=== PATIENT | female | born 1960 | race Caucasian/White ===

== ENCOUNTER 2020-03-25 21:42 | Emergency (ER) | payer MEDICAID ==
[~2020-03-25] VITALS: Ht 175.3 cm; Wt 59.0 kg
[~2020-03-25 21:42] MED LIST: BENZ2AMP4 PO; PALI9TAB PO; SERT50TA PO
--- NOTE | 2020-03-25 21:58 | NUR ---
INDUSTRIAL X RAY OPERATOR: EKG DONE IN TRIAGE
--- NOTE | 2020-03-25 22:31 | NUR ---
MANAGER SHIFT COVID SWAB COLLECTED AND WALKED TO LAB.
[2020-03-25 22:50] LABS: BASOPHILS % (AUTO) 1 % (0-1); EOSINOPHILS % (AUTO) 2 % (1-7); LYMPHOCYTES % (AUTO) 35 % (22-44); MEAN CORPUSCULAR HEMOGLOBIN 32.8 pg (27.0-34.8); MEAN CORPUSCULAR HGB CONC 33.5 g/dL (32.4-35.8); MONOCYTES % (AUTO) 16 % (2-9); NEUTROPHILS % (AUTO) 47 % (42-75); PLATELET COUNT 119 x10^3/uL (130-400); RED BLOOD COUNT 3.72 x10^6/uL (3.82-5.3); RED CELL DISTRIBUTION WIDTH 15.4 % (9.6-15.2)
[2020-03-25 22:52] LABS: MD NO
[2020-03-25 23:17] LABS: ANION GAP 10 mmol/L (5-15); CHLORIDE 108 mmol/L (98-107)
[2020-03-25 23:18] LABS: CREATININE 0.57 mg/dL (0.55-1.02)
[2020-03-25 23:22] LABS: ALANINE AMINOTRANSFERASE 36 U/L (12-78); ALKALINE PHOSPHATASE 96 U/L (45-117)
[2020-03-25 23:23] LABS: ALBUMIN 3.8 g/dL (3.4-5.0)
[2020-03-25 23:38] LABS: C-REACTIVE PROTEIN, QUANT 0.11 mg/dL (0.02-0.49)
[2020-03-26 00:10] VITALS: BP 114/71
--- NOTE | 2020-03-26 00:42 | NUR ---
DISCHARGE PAPERWORK REVIEWED. NO QUESTIONS. VERBALIZES UNDERSTANDING. AMBULATORY AT DISCHARGE.
== END 2020-03-26 00:43 | disposition home or self-care (01) ==
LOC: ED 22:33
DX: B34.9 Viral infection, unspecified (principal); Z20.828 Contact with and (suspected) exposure to other viral communicable diseases; R00.0 Tachycardia, unspecified; R06.02 Shortness of breath
CPT/HCPCS: 71045; 80053; 82728; 83615; 84145; 85025; 86140; 87635; 93005; 99285

== ENCOUNTER 2020-05-03 03:00 | Inpatient (IN) | payer MEDICAID ==
[~2020-05-03] VITALS: Ht 175.3 cm; Wt 59.9 kg
[2020-05-03] MEDS ORDERED: PROMETHAZINE 25 MG/ML, 1ML IM ONE (03:30)
[2020-05-03] MEDS ORDERED: LORazepam 2 MG/ML, 1ML IVPush ONE (03:30)
[2020-05-03] MEDS ORDERED: SODIUM CHLORIDE 0.9% 1,000ML IVBOLUS ONE ×2 (03:30→07:00)
[2020-05-03] MEDS ORDERED: MAGNESIUM SULFATE 1 GM, THIAMINE 100 MG, FOLIC ACID 1 MG, MVI ADULT 10 ML in SODIUM CHL... IV ONE (03:30)
[2020-05-03] MEDS ORDERED: SODIUM CHLORIDE FLUSH 10ML SYR IVF ONE (03:30)
[2020-05-03] MEDS ORDERED: LORazepam 2 MG/ML, 1ML ONE ×2 (03:46→05:48)
[2020-05-03] MEDS ORDERED: PROMETHAZINE 25 MG/ML, 1ML ONE (03:46)
--- NOTE | 2020-05-03 03:51 | NUR ---
PT HAS VERY DIFFICULT VASCULATURE. IV ATTEMPTS x3 UNSUCCESSFUL. ULTRASOUND IV LINE REQUESTED. PT TOLERATED WELL. MEDICATED WITH IM ANTIEMETIC. PT RESTING, DENIES ANY FURTHER NEEDS OR CONCERNS AT THIS TIME. CALL LIGHT IN REACH.
--- NOTE | 2020-05-03 04:36 | NUR ---
ULTRASOUND LINE STARTED PER KAMERON URIARTE. PT TOLERATED WELL. FLUIDS INFUSING AT THIS TIME. PT DENIES ANY CURRENT NEEDS OR CONCERNS. CALL LIGHT IN REACH.
--- NOTE | 2020-05-03 04:58 | NUR ---
IV FLUIDS CONTINUE INFUSING, PT RESTING WITH EYES CLOSED, RESPIRATIONS EVEN AND UNLABORED. IV SITE NOTED TO BE SWOLLEN, TIGHT, THOUGH FLUIDS CONTINUE INFUSING ON GRAVITY. IV PAUSED, IV SITE DISCONTINUED DUE TO INFILTRATE. SECOND ULTRASOUND LINE REQUESTED.
--- NOTE | 2020-05-03 05:43 | NUR ---
SECOND RN STARTED MULTIPLE LINES, ALL CHARTED AT THIS TIME. FLUIDS ATTACHED TO EJ AND CONTINUED AT THIS TIME. PT DENIES ANY FURTHER NEEDS OR CONCERNS AT THIS TIME, CALL LIGHT IN REACH.
[2020-05-03 05:53] LABS: BASOPHILS % (AUTO) 1 % (0-1); EOSINOPHILS % (AUTO) 0 % (1-7); LYMPHOCYTES % (AUTO) 11 % (22-44); MEAN CORPUSCULAR HEMOGLOBIN 33.5 pg (27.0-34.8); MEAN CORPUSCULAR HGB CONC 33.8 g/dL (32.4-35.8); MEAN PLATELET VOLUME 7.3 fL (7.4-10.4); MONOCYTES % (AUTO) 13 % (2-9); NEUTROPHILS % (AUTO) 76 % (42-75); PLATELET COUNT 111 x10^3/uL (130-400); RED BLOOD COUNT 3.62 x10^6/uL (3.82-5.3); RED CELL DISTRIBUTION WIDTH 14.2 % (9.6-15.2)
[2020-05-03 05:59] LABS: ALANINE AMINOTRANSFERASE 26 U/L (12-78); ALBUMIN 3.7 g/dL (3.4-5.0); ANION GAP 15 mmol/L (5-15); CHLORIDE 92 mmol/L (98-107); CREATININE 1.22 mg/dL (0.55-1.02)
[2020-05-03 06:00] LABS: INTERNATIONAL NORMALIZED RATIO 1.03 (0.93-1.1); PROTHROMBIN TIME 10.9 Seconds (9.6-11.5)
[2020-05-03] MEDS: LORazepam 2 MG/ML, 1ML IVPush PRN ×2 (06:02→06:25)
[2020-05-03 06:03] LABS: ALKALINE PHOSPHATASE 73 U/L (45-117); BILIRUBIN,TOTAL 2.2 mg/dL (0.2-1.0); TOTAL PROTEIN 7.7 g/dL (6.4-8.2); TROPONIN I < 0.015 ng/mL (0.000-0.045)
[2020-05-03 06:27] LABS: MD SCAN
--- NOTE | 2020-05-03 06:43 | NUR ---
PT IN BED, ALERT, RESPONSIVE TO STAFF. REQUESTS BATHROOM, ASSISTED ONTO BEDPAN. PT UNABLE TO URINATE. DENIES ANY FURTHER NEED AT THIS TIME. CALL LIGHT IN REACH.
[2020-05-03] MEDS ORDERED: ONDANSETRON 2MG/ML, 2ML IVPush PRN ×2 (07:00→08:30)
[2020-05-03] MEDS ORDERED: SODIUM CHLORIDE 0.9% 1,000 ML IV ONE (07:00)
--- NOTE | 2020-05-03 07:04 | NUR ---
Report received and care assumed. Repositioned pt in bed and covered her with blankets. IVF and banana bag running as stated in report. Pt is shaky all over, especially when holding out her hand, mumbling incomprehensible words, following commands, but oriented only to self. KARENA, denies needing to urinate and no incontinence present at this time. Room straightened and call light in reach.
--- NOTE | 2020-05-03 07:20 | NUR ---
Pt with urinary incontinence noted. Pt cleaned with warm washcloths, new gown applied and pt placed on dry sheets with blankets over her. Call light in reach, pt repositioned to top of bed and side rails up.
--- NOTE | 2020-05-03 08:10 | NUR ---
Pt restless in bed and found with urinary incontinence again. Pt cleaned with warm washcloth and placed on dry sheets with clean gown and chucks pad. Call light in reach and blankets placed over pt. She continues to mumble incoherently with moderate shakiness present.
--- NOTE | 2020-05-03 08:22 | NUR ---
Pt placed on bedpan for second time now with good results after first placement 10 minutes ago. IV site saline locked and flushes well. Both fluids completed.
[2020-05-03] MEDS ORDERED: CYCLOBENZAPRINE 10 MG TABLET PO PRN (08:30)
[2020-05-03] MEDS ORDERED: LORazepam 1MG TABLET PO PRN ×4 (08:30)
[2020-05-03] MEDS: ENOXAPARIN 40 MG/0.4 ML SQ SCH (08:30)
[2020-05-03] MEDS ORDERED: LORazepam 0.5MG TABLET PO PRN (08:30)
[2020-05-03] MEDS ORDERED: LABETALOL 5MG/ML, 20ML IVPush PRN (08:30)
[2020-05-03] MEDS ORDERED: FOLIC ACID 5 MG/ML IM ONE (08:30)
[2020-05-03] MEDS ORDERED: THIAMINE 200 MG in DEXTROSE 5% 50 ML IVPB ONE (08:30)
[2020-05-03] MEDS: THIAMINE 200 MG, MVI ADULT 10 ML, FOLIC ACID 1 MG in D5%-0.9% NACL 1,000 ML IV SCH (08:30)
[2020-05-03] MEDS ORDERED: ONDANSETRON ODT 4 MG PO PRN (08:30)
[2020-05-03] MEDS ORDERED: ACETAMINOPHEN 325 MG TABLET PO PRN (08:30)
[2020-05-03] MEDS ORDERED: LORazepam 2 MG/ML, 1ML IV PRN ×4 (08:30)
[2020-05-03] MEDS: CHLORDIAZEPOXIDE 25 MG CAPSULE PO SCH ×7 (08:30→20:30)
--- NOTE | 2020-05-03 08:30 | NUR ---
Erick trarebeca ordered and NICOLE reviewed for any AM meds while awaiting room assignment.
[2020-05-03] MEDS ORDERED: ENOXAPARIN 40 MG/0.4 ML ONE (08:55)
[2020-05-03] MEDS ORDERED: CHLORDIAZEPOXIDE 25 MG CAPSULE ONE ×2 (08:56→13:44)
[2020-05-03] MEDS ORDERED: THIAMINE 100 MG/ML, 2ML ONE (08:56)
[2020-05-03] MEDS ORDERED: PANTOPRAZOLE 40MG TABLET ONE (08:56)
[2020-05-03] MEDS: PANTOPRAZOLE 40MG TABLET PO SCH (09:29)
--- NOTE | 2020-05-03 09:50 | NUR ---
Pt ate approximately 5% of her breakfast, took AM meds that were available in [facility], and maintenance IVF started via pump at 125mL/hr as ordered with Thiamine running IVPB via pump at 250mL/hr after mixed in 250mL NS bag. Awaiting all other AM meds to be delivered from pharmacy at this time. Pt repositioned in bed and lights dimmed.
[2020-05-03] MEDS ORDERED: FOLIC ACID 1 MG TABLET PO ONE (10:00)
--- NOTE | 2020-05-03 10:09 | NUR ---
Pt found trying to scoot off end of bed. Repositioned in bed and noted that pt was hallucinating a person in the corner. Remains with moderate shakes, mumbling incoherently most times but able to be redirected and answers questions clearly with continued request for focus. Based on CIWA scale, pt will be provided Ativan if needed.
--- NOTE | 2020-05-03 10:36 | NUR ---
Pt assisted onto and off of bedpan again with good uop noted. Skin care completed and dry chucks pad applied.
[2020-05-03] MEDS: MULTIVITAMINS/MINERALS TABLET PO SCH (11:28)
--- NOTE | 2020-05-03 12:04 | NUR ---
Pt assisted onto bedpan with good uop present. Skin care completed and pt repositioned in bed. Pt mumbles incoherently unless focussed questions asked and then she answers correctly but with slurred speech noted. Pt remains moderately shaky and having visual hallucinations. Friend is visiting and sitting at bedside at this time.
--- NOTE | 2020-05-03 13:36 | NUR ---
Pt assisted on and off bedpan with moderate uop present. Pt repositioned in bed and call light in reach.
--- NOTE | 2020-05-03 13:55 | NUR ---
Pt assisted on and off bedpan with good uop noted. Pt placed on new chucks pad as well and repositioned in bed.
[2020-05-03 14:40] LABS: ANION GAP 11 mmol/L (5-15); CALCIUM 8.8 mg/dL (8.5-10.1); CHLORIDE 106 mmol/L (98-107); CREATININE 0.79 mg/dL (0.55-1.02)
--- NOTE | 2020-05-03 15:11 | NUR ---
Pt resting after [facility] admin at 1430 with VSS and NAD noted at this time.
[2020-05-03] MEDS ORDERED: ACETAMINOPHEN 325 MG TABLET ONE (15:16)
--- NOTE | 2020-05-03 15:24 | NUR ---
Pt assisted on and off bedpan and repositioned in bed after APAP given PO for c/o moderate ARREDONDO.
--- NOTE | 2020-05-03 16:58 | NUR ---
Pt resting on left side, snoring respirations present and no acute distress noted. Friend sitting quietly at bedside with pt at this time.
--- NOTE | 2020-05-03 17:54 | NUR ---
CALL TO DR. ABURTO TO CONFIRM COVID MONITORED INPATIENT ADMIT, PER DR. ABURTO OKAY TO CHANGE TO COVID MONITORED.
--- NOTE | 2020-05-03 18:35 | NUR ---
Report called to KAMERON Bullard and pt readied for transfer.
--- NOTE | 2020-05-03 18:58 | NUR ---
Pt found incontinent of urine. Skin care completed, new gown and new linens applied and pt set up for dinner while awaiting transport to floor. Brief overview provided to FABIANO RN for continuity of care while between shifts and between being transferred to floor.
[2020-05-03 20:07] VITALS: BP 112/73
[2020-05-04] VITALS (11 sets, daily range): BP systolic 101–130; BP diastolic 59–86
[2020-05-04] MEDS: LORazepam 2 MG/ML, 1ML IV PRN ×3 (00:51→05:48)
[2020-05-04] MEDS: CHLORDIAZEPOXIDE 25 MG CAPSULE PO SCH ×5 (02:13→20:31)
[2020-05-04] MEDS: THIAMINE 200 MG, MVI ADULT 10 ML, FOLIC ACID 1 MG in D5%-0.9% NACL 1,000 ML IV SCH (08:49)
[2020-05-04] MEDS: MULTIVITAMINS/MINERALS TABLET PO SCH (08:49)
[2020-05-04] MEDS: PANTOPRAZOLE 40MG TABLET PO SCH (08:50)
[2020-05-04] MEDS: ENOXAPARIN 40 MG/0.4 ML SQ SCH (08:51)
[2020-05-04 12:33] LABS: BASOPHILS % (AUTO) 1 % (0-1); EOSINOPHILS % (AUTO) 2 % (1-7); LYMPHOCYTES % (AUTO) 17 % (22-44); MEAN CORPUSCULAR HEMOGLOBIN 33.3 pg (27.0-34.8); MEAN CORPUSCULAR HGB CONC 33.4 g/dL (32.4-35.8); MEAN PLATELET VOLUME 7.7 fL (7.4-10.4); MONOCYTES % (AUTO) 12 % (2-9); NEUTROPHILS % (AUTO) 69 % (42-75); PLATELET COUNT 65 x10^3/uL (130-400); RED CELL DISTRIBUTION WIDTH 14.6 % (9.6-15.2)
[2020-05-04 12:37] LABS: MD NO
[2020-05-04 12:40] LABS: CHLORIDE 108 mmol/L (98-107)
[2020-05-04 12:49] LABS: ALANINE AMINOTRANSFERASE 22 U/L (12-78); ALKALINE PHOSPHATASE 65 U/L (45-117); ANION GAP 9 mmol/L (5-15); BILIRUBIN,TOTAL 1.8 mg/dL (0.2-1.0); CALCIUM 8.9 mg/dL (8.5-10.1); CREATININE 0.64 mg/dL (0.55-1.02); TOTAL PROTEIN 6.7 g/dL (6.4-8.2)
[2020-05-04] MEDS ORDERED: THIAMINE 200 MG, MVI ADULT 10 ML, FOLIC ACID 1 MG in D5%-0.9% NACL 1,000 ML IV SCH (16:30)
[2020-05-05 02:05] VITALS: BP 114/74
[2020-05-05] MEDS: CHLORDIAZEPOXIDE 25 MG CAPSULE PO SCH (02:26)
[2020-05-05 06:52] VITALS: BP 118/75
[2020-05-05] MEDS: PANTOPRAZOLE 40MG TABLET PO SCH (07:51)
[2020-05-05] MEDS: MULTIVITAMINS/MINERALS TABLET PO SCH (07:51)
[2020-05-05] MEDS: ENOXAPARIN 40 MG/0.4 ML SQ SCH (07:53)
[2020-05-05 12:52] VITALS: BP 130/86
[2020-05-05] MEDS ORDERED: MAGNESIUM SULFATE PMX 4GM/100M 100 ML IVPB ONE (18:00)
[2020-05-05] MEDS: POTASSIUM CHLORIDE 20 MEQ PACKET PO SCH (18:22)
[2020-05-05 20:00] VITALS: BP 126/80
[2020-05-06 00:59] VITALS: BP 112/73
[2020-05-06 06:07] LABS: BASOPHILS % (AUTO) 1 % (0-1); EOSINOPHILS % (AUTO) 3 % (1-7); LYMPHOCYTES % (AUTO) 15 % (22-44); MEAN CORPUSCULAR HEMOGLOBIN 33.9 pg (27.0-34.8); MEAN CORPUSCULAR HGB CONC 34.1 g/dL (32.4-35.8); MEAN PLATELET VOLUME 7.6 fL (7.4-10.4); MONOCYTES % (AUTO) 11 % (2-9); NEUTROPHILS % (AUTO) 70 % (42-75); PLATELET COUNT 81 x10^3/uL (130-400); RED BLOOD COUNT 3.24 x10^6/uL (3.82-5.3); RED CELL DISTRIBUTION WIDTH 14.3 % (9.6-15.2)
[2020-05-06 06:20] LABS: MD NO
[2020-05-06 06:21] LABS: ANION GAP 9 mmol/L (5-15); CALCIUM 9.6 mg/dL (8.5-10.1); CHLORIDE 107 mmol/L (98-107)
[2020-05-06 06:39] LABS: CREATININE 0.44 mg/dL (0.55-1.02)
[2020-05-06 07:05] VITALS: BP 114/76
[2020-05-06] MEDS: ENOXAPARIN 40 MG/0.4 ML SQ SCH (08:30)
[2020-05-06] MEDS: POTASSIUM CHLORIDE 20 MEQ PACKET PO SCH ×2 (08:49→16:55)
[2020-05-06] MEDS: PANTOPRAZOLE 40MG TABLET PO SCH (08:49)
[2020-05-06] MEDS: MULTIVITAMINS/MINERALS TABLET PO SCH (08:49)
[2020-05-06] MEDS ORDERED: POTASSIUM PHOSPHATE 44 MEQ in SODIUM CHLORIDE 0.9% 500 ML IV ONE (10:00)
[2020-05-06] MEDS ORDERED: POTASSIUM PHOS 4.4 MEQ/ML IV ONE (10:00)
[2020-05-06 12:54] VITALS: BP 127/83
[2020-05-06 19:19] VITALS: BP 140/82
[2020-05-06] MEDS ORDERED: LORazepam 2 MG/ML, 1ML IV ONE (20:30)
[2020-05-06] MEDS: LORazepam 2 MG/ML, 1ML IV PRN (22:18)
[2020-05-07] MEDS: LORazepam 2 MG/ML, 1ML IV PRN (01:09)
[2020-05-07 01:36] VITALS: BP 118/74
[2020-05-07 05:33] LABS: ANION GAP 5 mmol/L (5-15); CALCIUM 10.2 mg/dL (8.5-10.1); CHLORIDE 107 mmol/L (98-107)
[2020-05-07 05:34] LABS: CREATININE 0.64 mg/dL (0.55-1.02)
[2020-05-07] MEDS ORDERED: MAGNESIUM SULFATE PMX 2GM/50ML 50 ML IV ONE (06:00)
[2020-05-07] MEDS: PANTOPRAZOLE 40MG TABLET PO SCH (07:30)
[2020-05-07 07:58] VITALS: BP 121/73
[2020-05-07] MEDS: POTASSIUM CHLORIDE 20 MEQ PACKET PO SCH ×2 (08:00→17:00)
[2020-05-07] MEDS ORDERED: MAGNESIUM SULFATE PMX 4GM/100M 100 ML IVPB ONE (08:30)
[2020-05-07] MEDS: MULTIVITAMINS/MINERALS TABLET PO SCH (09:00)
[2020-05-07] MEDS: ENOXAPARIN 40 MG/0.4 ML SQ SCH (09:39)
[2020-05-07 13:30] VITALS: BP 101/70
[2020-05-07 20:25] VITALS: BP 98/59
[2020-05-08 02:22] VITALS: BP 115/73
[2020-05-08 07:15] VITALS: BP 120/72
[2020-05-08] MEDS: MULTIVITAMINS/MINERALS TABLET PO SCH (08:10)
[2020-05-08] MEDS: POTASSIUM CHLORIDE 20 MEQ PACKET PO SCH (08:10)
[2020-05-08] MEDS: ENOXAPARIN 40 MG/0.4 ML SQ SCH (08:10)
[2020-05-08] MEDS: PANTOPRAZOLE 40MG TABLET PO SCH (08:10)
[2020-05-08 13:49] VITALS: BP 121/75
[2020-05-08] MEDS: THIAMINE 100MG TABLET PO SCH (14:51)
[2020-05-08 19:43] VITALS: BP 118/72
[2020-05-08 23:07] VITALS: BP 146/86
[2020-05-08] MEDS ORDERED: ACETAMINOPHEN 325 MG SUPP PR PRN (23:30)
[2020-05-09 00:50] LABS: MICROSCOPIC INDICATED
[2020-05-09 01:39] LABS: MEAN CORPUSCULAR HEMOGLOBIN 33.2 pg (27.0-34.8); MEAN CORPUSCULAR HGB CONC 33.7 g/dL (32.4-35.8); MEAN PLATELET VOLUME 8.9 fL (7.4-10.4); PLATELET COUNT 155 x10^3/uL (130-400); RED BLOOD COUNT 3.22 x10^6/uL (3.82-5.3); RED CELL DISTRIBUTION WIDTH 14.4 % (9.6-15.2)
[2020-05-09 01:49] LABS: ANION GAP 7 mmol/L (5-15); CALCIUM 9.3 mg/dL (8.5-10.1); CHLORIDE 109 mmol/L (98-107)
[2020-05-09 02:19] LABS: MD YES
[2020-05-09 02:20] LABS: LYMPH#(MANUAL) 0.46 x10^3/uL (1-3.4); LYMPHS% (MANUAL) 5 % (22-44); MONOS% (MANUAL) 12 % (2-9); SEG#(MANUAL) 7.64 x10^3/uL (1.8-6.8); SEGS% (MANUAL) 83 % (42-75)
[2020-05-09 02:21] LABS: <PLATELET ESTIMATE> ADEQUATE; <PLT MORPHOLOGY> NORMAL PLT MORPH; <RBC MORPHOLOGY> NORMAL
[2020-05-09] MEDS: CEFTRIAXONE PMX 2GM/50ML 50 ML IVPB SCH (02:24)
[2020-05-09 03:01] VITALS: BP 112/77
[2020-05-09 07:02] VITALS: BP 107/70
[2020-05-09] MEDS: ENOXAPARIN 40 MG/0.4 ML SQ SCH (08:30)
[2020-05-09] MEDS: THIAMINE 100MG TABLET PO SCH (09:01)
[2020-05-09] MEDS: PANTOPRAZOLE 40MG TABLET PO SCH (09:01)
[2020-05-09] MEDS: MULTIVITAMINS/MINERALS TABLET PO SCH (09:01)
[2020-05-09 12:39] VITALS: BP 120/79
[2020-05-09 19:12] VITALS: BP 108/66
[2020-05-10 00:12] VITALS: BP 123/73
[2020-05-10] MEDS: CEFTRIAXONE PMX 2GM/50ML 50 ML IVPB SCH (02:47)
[2020-05-10] MEDS: ENOXAPARIN 40 MG/0.4 ML SQ SCH (09:40)
[2020-05-10] MEDS: THIAMINE 100MG TABLET PO SCH (09:40)
[2020-05-10] MEDS: PANTOPRAZOLE 40MG TABLET PO SCH (09:40)
[2020-05-10] MEDS: MULTIVITAMINS/MINERALS TABLET PO SCH (09:40)
[2020-05-10 14:14] VITALS: BP 118/73
[2020-05-10 19:40] VITALS: BP 105/77
[2020-05-10 23:27] VITALS: BP 96/61
[2020-05-11] MEDS: CEFTRIAXONE PMX 2GM/50ML 50 ML IVPB SCH (01:48)
[2020-05-11 06:18] LABS: CHLORIDE 105 mmol/L (98-107)
[2020-05-11 06:21] LABS: BASOPHILS % (AUTO) 1 % (0-1); EOSINOPHILS % (AUTO) 2 % (1-7); LYMPHOCYTES % (AUTO) 15 % (22-44); MEAN CORPUSCULAR HEMOGLOBIN 33.1 pg (27.0-34.8); MEAN CORPUSCULAR HGB CONC 33.3 g/dL (32.4-35.8); MEAN PLATELET VOLUME 9.5 fL (7.4-10.4); MONOCYTES % (AUTO) 9 % (2-9); NEUTROPHILS % (AUTO) 74 % (42-75); PLATELET COUNT 269 x10^3/uL (130-400); RED BLOOD COUNT 2.84 x10^6/uL (3.82-5.3); RED CELL DISTRIBUTION WIDTH 14.4 % (9.6-15.2)
[2020-05-11 06:26] LABS: ALANINE AMINOTRANSFERASE 20 U/L (12-78); ALBUMIN 2.4 g/dL (3.4-5.0); ALKALINE PHOSPHATASE 83 U/L (45-117); ANION GAP 6 mmol/L (5-15); BILIRUBIN,TOTAL 0.7 mg/dL (0.2-1.0); CALCIUM 9.5 mg/dL (8.5-10.1); CREATININE 0.47 mg/dL (0.55-1.02); TOTAL PROTEIN 6.3 g/dL (6.4-8.2)
[2020-05-11 06:33] LABS: MD NO
[2020-05-11 07:31] VITALS: BP 90/54
[2020-05-11] MEDS: ENOXAPARIN 40 MG/0.4 ML SQ SCH (08:30)
[2020-05-11] MEDS ORDERED: MAGNESIUM SULFATE PMX 4GM/100M 100 ML IVPB ONE (08:30)
[2020-05-11] MEDS ORDERED: MAGNESIUM SULFATE 4 GM in SODIUM CHLORIDE 0.9% 100 ML IV ONE (08:30)
[2020-05-11] MEDS ORDERED: POTASSIUM CHLORIDE 20 MEQ TAB.ER.PRT PO ONE (09:00)
[2020-05-11] MEDS: PANTOPRAZOLE 40MG TABLET PO SCH (09:13)
[2020-05-11] MEDS: THIAMINE 100MG TABLET PO SCH (09:13)
[2020-05-11] MEDS: MULTIVITAMINS/MINERALS TABLET PO SCH (09:13)
[2020-05-11 14:11] VITALS: BP 102/63
[2020-05-11 20:20] VITALS: BP 94/62
[2020-05-12 01:50] VITALS: BP 121/76
[2020-05-12] MEDS: CEFTRIAXONE PMX 2GM/50ML 50 ML IVPB SCH (01:59)
[2020-05-12 05:55] LABS: BASOPHILS % (AUTO) 1 % (0-1); EOSINOPHILS % (AUTO) 1 % (1-7); LYMPHOCYTES % (AUTO) 16 % (22-44); MEAN CORPUSCULAR HEMOGLOBIN 32.9 pg (27.0-34.8); MEAN CORPUSCULAR HGB CONC 33.1 g/dL (32.4-35.8); MEAN PLATELET VOLUME 9.1 fL (7.4-10.4); MONOCYTES % (AUTO) 9 % (2-9); NEUTROPHILS % (AUTO) 73 % (42-75); PLATELET COUNT 340 x10^3/uL (130-400); RED BLOOD COUNT 2.85 x10^6/uL (3.82-5.3); RED CELL DISTRIBUTION WIDTH 14.4 % (9.6-15.2)
[2020-05-12 06:01] LABS: ANION GAP 5 mmol/L (5-15); CHLORIDE 108 mmol/L (98-107)
[2020-05-12 06:13] LABS: MD NO
[2020-05-12 06:30] LABS: % IRON SATURATION 46 % (20-55); IRON LEVEL 59 mcg/dL (50-170); TOTAL IRON BINDING CAPACITY 127 mcg/dL (250-450)
[2020-05-12 07:00] VITALS: BP 98/62
[2020-05-12] MEDS: ENOXAPARIN 40 MG/0.4 ML SQ SCH (08:30)
[2020-05-12] MEDS: PANTOPRAZOLE 40MG TABLET PO SCH (09:42)
[2020-05-12] MEDS: MULTIVITAMINS/MINERALS TABLET PO SCH (09:42)
[2020-05-12] MEDS: THIAMINE 100MG TABLET PO SCH (09:42)
[2020-05-12 12:20] VITALS: BP 105/68
[2020-05-12 20:01] VITALS: BP 109/73
[2020-05-13] MEDS: CEFTRIAXONE PMX 2GM/50ML 50 ML IVPB SCH (02:56)
[2020-05-13 07:14] VITALS: BP 95/54
[2020-05-13] MEDS: THIAMINE 100MG TABLET PO SCH (09:00)
[2020-05-13] MEDS: MULTIVITAMINS/MINERALS TABLET PO SCH (12:35)
[2020-05-13] MEDS: PANTOPRAZOLE 40MG TABLET PO SCH (12:37)
[2020-05-13] MEDS: ENOXAPARIN 40 MG/0.4 ML SQ SCH (12:37)
[2020-05-13 13:02] VITALS: BP 92/60
[2020-05-13 19:29] VITALS: BP 94/62
[2020-05-14 01:24] VITALS: BP 90/56
[2020-05-14] MEDS: CEFTRIAXONE PMX 2GM/50ML 50 ML IVPB SCH (02:28)
[2020-05-14 07:02] VITALS: BP 98/60
[2020-05-14] MEDS: MULTIVITAMINS/MINERALS TABLET PO SCH (08:01)
[2020-05-14] MEDS: PANTOPRAZOLE 40MG TABLET PO SCH (08:01)
[2020-05-14] MEDS: THIAMINE 100MG TABLET PO SCH (08:01)
[2020-05-14] MEDS: ENOXAPARIN 40 MG/0.4 ML SQ SCH (08:02)
[2020-05-14] MEDS ORDERED: CEFD300C37 PO (10:37)
== END 2020-05-14 12:37 | disposition home or self-care (01) | DRG 469 ==
LOC: ED 05:59 → EDIP 06:42 → 4EST 19:14 → 4WST 05-04 18:28 → 5SO 05-05 23:14 → 3N 05-12 22:53 → DCLOUNGE 05-14 12:33
PROVIDERS: ADMIT Family Medicine; ATTEND Family Medicine
PROC: 0T9B70Z Drainage of Bladder with Drainage Device, Via Natural or Artificial Opening (ICD-10-PCS; principal; 2020-05-09)
DX: N17.0 Acute kidney failure with tubular necrosis (principal); F10.231 Alcohol dependence with withdrawal delirium; G93.41 Metabolic encephalopathy; E44.0 Moderate protein-calorie malnutrition; F31.9 Bipolar disorder, unspecified; Z68.1 Body mass index [BMI] 19.9 or less, adult; D64.9 Anemia, unspecified; D69.6 Thrombocytopenia, unspecified; Z20.822 Contact with and (suspected) exposure to COVID-19; E86.0 Dehydration; E86.1 Hypovolemia; E87.1 Hypo-osmolality and hyponatremia; F20.9 Schizophrenia, unspecified; K85.20 Alcohol induced acute pancreatitis without necrosis or infection; A41.9 Sepsis, unspecified organism; N39.0 Urinary tract infection, site not specified
CPT/HCPCS: 36415; 36600; 70450; 71045; 80048; 80053; 81001; 82140; 82607; 82803; 83540; 83550; 83605; 83690; 83735; 84100; 84484; 85025; 85610; 85730; 87040; 87077; 87086; 87186; 93005; 99291; G0378; J0696; J1650; J2405; J2550; J3411; J3475; J7042; J2060; J7030; J7040; U0003

== ENCOUNTER 2020-07-28 09:52 | Inpatient (IN) | payer MEDICAID ==
[~2020-07-28] VITALS: Ht 175.3 cm; Wt 63.3 kg
[~2020-07-28 09:52] MED LIST changes: +CEFD300C37 PO
--- NOTE | 2020-07-28 10:02 | NUR ---
PT BIB EMS FOR SHAKING AND N/V. PT TRYING TO QUIT DRINKING ALCOHOL. LAST DRINK WAS YESTERDAY AFTERNOON. PT TOLD EMS SHE IS TRYING TO QUIT DRINKING. PT ALSO HAS ALL OVER ABD PAIN, 12/15. PER EMS PT ALSO TOLD THEM SHE HAD BLOOD IN HER VOMIT, BUT NONE WAS SEEN PER EMS.
[2020-07-28] MEDS ORDERED: LORazepam 2 MG/ML, 1ML ONE (10:29)
[2020-07-28] MEDS ORDERED: FAMOTIDINE 20 MG/2 ML ONE (10:29)
[2020-07-28] MEDS ORDERED: THIAMINE 100MG TABLET ONE (10:29)
[2020-07-28] MEDS ORDERED: ONDANSETRON 2MG/ML, 2ML ONE (10:29)
[2020-07-28] MEDS ORDERED: SODIUM CHLORIDE FLUSH 10ML SYR IVF ONE ×2 (10:30)
[2020-07-28] MEDS ORDERED: FOLIC ACID 1 MG TABLET PO ONE (10:30)
[2020-07-28] MEDS ORDERED: SODIUM CHLORIDE 0.9% 1,000ML IVBOLUS ONE (10:30)
[2020-07-28] MEDS ORDERED: FAMOTIDINE 20 MG/2 ML IVPush ONE (10:30)
[2020-07-28] MEDS ORDERED: THIAMINE 100MG TABLET PO ONE (10:30)
[2020-07-28] MEDS ORDERED: MAGNESIUM SULFATE 1 GM/2 ML IVPush ONE (10:30)
[2020-07-28] MEDS ORDERED: ONDANSETRON 2MG/ML, 2ML IVPush ONE (10:30)
[2020-07-28] MEDS: LORazepam 2 MG/ML, 1ML IVPush PRN ×3 (10:46→14:22)
[2020-07-28 10:57] LABS: BASOPHILS % (AUTO) 0 % (0-1); EOSINOPHILS % (AUTO) 0 % (1-7); LYMPHOCYTES % (AUTO) 5 % (22-44); MD NO; MEAN CORPUSCULAR HEMOGLOBIN 32.7 pg (27.0-34.8); MEAN CORPUSCULAR HGB CONC 33.2 g/dL (32.4-35.8); MEAN PLATELET VOLUME 8.1 fL (7.4-10.4); MONOCYTES % (AUTO) 9 % (2-9); NEUTROPHILS % (AUTO) 86 % (42-75); PLATELET COUNT 106 x10^3/uL (130-400); RED CELL DISTRIBUTION WIDTH 16.7 % (9.6-15.2)
[2020-07-28] MEDS ORDERED: MAGNESIUM SULFATE/D5W 100 ML ONE (10:57)
[2020-07-28] MEDS ORDERED: MAGNESIUM SULFATE 1 GM in DEXTROSE 5% 100 ML IV ONE (11:00)
[2020-07-28 11:04] LABS: ALANINE AMINOTRANSFERASE 38 U/L (12-78); ALBUMIN 3.8 g/dL (3.4-5.0); ANION GAP 18 mmol/L (5-15); CALCIUM 9.3 mg/dL (8.5-10.1); CHLORIDE 95 mmol/L (98-107)
[2020-07-28 11:06] LABS: ALKALINE PHOSPHATASE 81 U/L (45-117); BILIRUBIN,TOTAL 1.2 mg/dL (0.2-1.0); TOTAL PROTEIN 7.9 g/dL (6.4-8.2)
--- NOTE | 2020-07-28 11:17 | NUR ---
PT MEDICATED PER MAR FOR ALCOHOL WITHDRAWAL SYMPTOMS: SHAKINESS, VISUAL HALLUCINATIONS, AND N/V.
[2020-07-28] MEDS ORDERED: CHLORDIAZEPOXIDE 25 MG CAPSULE ONE (11:37)
[2020-07-28 11:50] LABS: MICROSCOPIC NOT IND
[2020-07-28] MEDS ORDERED: CHLORDIAZEPOXIDE 25 MG CAPSULE PO PRN (12:30)
[2020-07-28] MEDS ORDERED: ACETAMINOPHEN 325 MG TABLET PO PRN (13:00)
[2020-07-28] MEDS ORDERED: ONDANSETRON ODT 4 MG PO PRN (13:00)
[2020-07-28] MEDS ORDERED: CHLORDIAZEPOXIDE 25 MG CAPSULE PO SCH (13:30)
[2020-07-28] MEDS ORDERED: LORazepam 2 MG/ML, 1ML IV PRN ×2 (13:30)
[2020-07-28 14:11] VITALS: BP 112/61
[2020-07-28] MEDS: CHLORDIAZEPOXIDE 25 MG CAPSULE PO SCH ×2 (15:00→20:56)
[2020-07-28] MEDS: THIAMINE 100 MG in SODIUM CHLORIDE 0.9% 50 ML IV SCH (15:01)
[2020-07-28] MEDS: NS + 20MEQ KCL 1,000 ML IV SCH (15:01)
[2020-07-28] MEDS ORDERED: POTASSIUM PHOSPHATE 44 MEQ in SODIUM CHLORIDE 0.9% 500 ML IV ONE (17:00)
[2020-07-28] MEDS: LORazepam 2 MG/ML, 1ML IV PRN (17:00)
[2020-07-28 17:09] LABS: AMPHETAMINE SCREEN, URINE Positive (Negative); BARBITURATE SCREEN, URINE Negative (Negative); BENZODIAZEPINE SCREEN, URINE Positive (Negative); CANNABINOID SCREEN, URINE Negative (Negative); COCAINE SCREEN, URINE Negative (Negative); METHADONE SCREEN, URINE Negative (Negative); OPIATE SCREEN, URINE Negative (Negative)
[2020-07-28] MEDS: INSULIN LISPRO 100 UNITS/ML, PEN SQ-INSULIN SCH ×2 (17:35→20:35)
[2020-07-28 19:33] VITALS: BP 111/73
[2020-07-28] MEDS: SERTRALINE 50MG TABLET PO SCH (20:55)
[2020-07-28] MEDS: PALIPERIDONE 3 MG TAB.ER.24 PO SCH (20:56)
[2020-07-28] MEDS: BENZTROPINE 1 MG/ML, 2 ML IV SCH (21:30)
[2020-07-29 00:37] VITALS: BP 117/87
[2020-07-29] MEDS: NS + 20MEQ KCL 1,000 ML IV SCH ×2 (01:07→09:44)
[2020-07-29] MEDS: CHLORDIAZEPOXIDE 25 MG CAPSULE PO SCH ×4 (02:19→21:55)
[2020-07-29 05:21] LABS: BASOPHILS % (AUTO) 1 % (0-1); EOSINOPHILS % (AUTO) 1 % (1-7); LYMPHOCYTES % (AUTO) 22 % (22-44); MEAN CORPUSCULAR HGB CONC 33.3 g/dL (32.4-35.8); MEAN PLATELET VOLUME 8.4 fL (7.4-10.4); MONOCYTES % (AUTO) 10 % (2-9); NEUTROPHILS % (AUTO) 67 % (42-75); PLATELET COUNT 80 x10^3/uL (130-400); RED BLOOD COUNT 3.47 x10^6/uL (3.82-5.3)
[2020-07-29 05:27] LABS: MD NO
[2020-07-29 05:33] LABS: ANION GAP 8 mmol/L (5-15); CALCIUM 7.9 mg/dL (8.5-10.1); CHLORIDE 106 mmol/L (98-107)
[2020-07-29 05:44] LABS: CREATININE 0.51 mg/dL (0.55-1.02)
[2020-07-29] MEDS: INSULIN LISPRO 100 UNITS/ML, PEN SQ-INSULIN SCH ×4 (07:00→21:00)
[2020-07-29] MEDS: PANTOPRAZOLE 40 MG IV IVPush SCH (07:24)
[2020-07-29] MEDS ORDERED: MAGNESIUM SULFATE PMX 2GM/50ML 50 ML IV ONE (08:00)
[2020-07-29 08:16] VITALS: BP 92/57
[2020-07-29] MEDS: K-PHOS NEUTRAL 250MG TAB PO SCH ×3 (09:44→21:55)
[2020-07-29] MEDS: MULTIVITAMINS/MINERALS TABLET PO SCH (09:44)
[2020-07-29] MEDS: THIAMINE 100 MG in SODIUM CHLORIDE 0.9% 50 ML IV SCH (13:23)
[2020-07-29 15:15] VITALS: BP 115/75
[2020-07-29 19:14] VITALS: BP 113/72
[2020-07-29] MEDS: PALIPERIDONE 3 MG TAB.ER.24 PO SCH (21:55)
[2020-07-29] MEDS: SERTRALINE 50MG TABLET PO SCH (21:55)
[2020-07-29] MEDS: BENZTROPINE 1 MG/ML, 2 ML IV SCH (22:02)
[2020-07-30 00:17] VITALS: BP 108/70
[2020-07-30] MEDS: CHLORDIAZEPOXIDE 25 MG CAPSULE PO SCH ×2 (02:02→08:19)
[2020-07-30] MEDS: NS + 20MEQ KCL 1,000 ML IV SCH ×2 (03:57→07:29)
[2020-07-30] MEDS: LORazepam 2 MG/ML, 1ML IV PRN ×6 (04:19→18:02)
[2020-07-30 05:32] LABS: BASOPHILS % (AUTO) 1 % (0-1); EOSINOPHILS % (AUTO) 2 % (1-7); LYMPHOCYTES % (AUTO) 23 % (22-44); MEAN CORPUSCULAR HGB CONC 33.2 g/dL (32.4-35.8); MEAN PLATELET VOLUME 8.5 fL (7.4-10.4); MONOCYTES % (AUTO) 11 % (2-9); NEUTROPHILS % (AUTO) 64 % (42-75); PLATELET COUNT 70 x10^3/uL (130-400); RED BLOOD COUNT 3.52 x10^6/uL (3.82-5.3); RED CELL DISTRIBUTION WIDTH 16.2 % (9.6-15.2)
[2020-07-30 05:37] LABS: MD NO
[2020-07-30 05:42] LABS: ALANINE AMINOTRANSFERASE 28 U/L (12-78); ALBUMIN 3.1 g/dL (3.4-5.0); ANION GAP 7 mmol/L (5-15); CALCIUM 8.5 mg/dL (8.5-10.1); CHLORIDE 109 mmol/L (98-107); CREATININE 0.53 mg/dL (0.55-1.02)
[2020-07-30 05:44] LABS: ALKALINE PHOSPHATASE 74 U/L (45-117); BILIRUBIN,TOTAL 1.8 mg/dL (0.2-1.0); TOTAL PROTEIN 6.4 g/dL (6.4-8.2)
[2020-07-30 06:30] VITALS: BP 115/63
[2020-07-30] MEDS: INSULIN LISPRO 100 UNITS/ML, PEN SQ-INSULIN SCH ×4 (07:00→21:00)
[2020-07-30] MEDS ORDERED: MAGNESIUM SULFATE PMX 2GM/50ML 50 ML IV ONE (08:00)
[2020-07-30] MEDS: K-PHOS NEUTRAL 250MG TAB PO SCH (08:18)
[2020-07-30] MEDS: MULTIVITAMINS/MINERALS TABLET PO SCH (08:18)
[2020-07-30] MEDS: PANTOPRAZOLE 40 MG IV IVPush SCH (08:19)
[2020-07-30] MEDS ORDERED: LORazepam 1MG TABLET ONE (10:57)
[2020-07-30] MEDS ORDERED: CHLORDIAZEPOXIDE 25 MG CAPSULE PO SCH (14:00)
[2020-07-30] MEDS ORDERED: POTASSIUM CHLORIDE 20 MEQ, MAGNESIUM SULFATE 1 GM, FOLIC ACID 1 MG, THIAMINE 200 MG, MV... IV SCH (14:00)
[2020-07-30] MEDS: CHLORDIAZEPOXIDE 10 MG CAPSULE PO SCH ×2 (16:09→22:29)
[2020-07-30] MEDS: POTASSIUM CHLORIDE 20 MEQ, MAGNESIUM SULFATE 1 GM, FOLIC ACID 1 MG, THIAMINE 200 MG in ... IV SCH (18:21)
[2020-07-30] MEDS: THIAMINE 100 MG in SODIUM CHLORIDE 0.9% 50 ML IV SCH (18:21)
[2020-07-30 20:42] VITALS: BP 125/79
[2020-07-30] MEDS ORDERED: CHLORDIAZEPOXIDE 25 MG CAPSULE PO PRN (21:00)
[2020-07-30] MEDS: SERTRALINE 50MG TABLET PO SCH (22:29)
[2020-07-30] MEDS: PALIPERIDONE 3 MG TAB.ER.24 PO SCH (22:30)
[2020-07-30] MEDS: BENZTROPINE 1 MG/ML, 2 ML IV SCH (22:30)
[2020-07-31] MEDS: LORazepam 2 MG/ML, 1ML IV PRN ×6 (01:24→12:17)
[2020-07-31 04:00] VITALS: BP 132/84
[2020-07-31 05:54] LABS: ALBUMIN 3.1 g/dL (3.4-5.0); ANION GAP 8 mmol/L (5-15); CHLORIDE 107 mmol/L (98-107)
[2020-07-31 05:59] LABS: ALANINE AMINOTRANSFERASE 40 U/L (12-78); ALKALINE PHOSPHATASE 75 U/L (45-117); BILIRUBIN,TOTAL 1.6 mg/dL (0.2-1.0); CREATININE 0.49 mg/dL (0.55-1.02); TOTAL PROTEIN 6.7 g/dL (6.4-8.2)
[2020-07-31 06:02] LABS: BASOPHILS % (AUTO) 1 % (0-1); EOSINOPHILS % (AUTO) 2 % (1-7); LYMPHOCYTES % (AUTO) 24 % (22-44); MEAN CORPUSCULAR HEMOGLOBIN 32.7 pg (27.0-34.8); MEAN CORPUSCULAR HGB CONC 32.6 g/dL (32.4-35.8); MEAN PLATELET VOLUME 8.4 fL (7.4-10.4); MONOCYTES % (AUTO) 12 % (2-9); NEUTROPHILS % (AUTO) 61 % (42-75); PLATELET COUNT 71 x10^3/uL (130-400); RED BLOOD COUNT 3.72 x10^6/uL (3.82-5.3); RED CELL DISTRIBUTION WIDTH 15.5 % (9.6-15.2)
[2020-07-31 06:05] LABS: MD NO
[2020-07-31] MEDS: INSULIN LISPRO 100 UNITS/ML, PEN SQ-INSULIN SCH ×4 (07:00→20:59)
[2020-07-31 07:45] VITALS: BP 126/74
[2020-07-31] MEDS ORDERED: MAGNESIUM SULFATE PMX 2GM/50ML 50 ML IV ONE (08:00)
[2020-07-31] MEDS: PANTOPRAZOLE 40 MG IV IVPush SCH (08:08)
[2020-07-31] MEDS: K-PHOS NEUTRAL 250MG TAB PO SCH ×3 (08:08→21:00)
[2020-07-31] MEDS: CHLORDIAZEPOXIDE 10 MG CAPSULE PO SCH ×3 (08:09→21:00)
[2020-07-31] MEDS: MULTIVITAMINS/MINERALS TABLET PO SCH (08:09)
[2020-07-31] MEDS: D5%-0.45% NACL 1,000 ML IV SCH ×2 (11:01→21:09)
[2020-07-31 12:06] VITALS: BP 118/82
[2020-07-31] MEDS: THIAMINE 100 MG in SODIUM CHLORIDE 0.9% 50 ML IV SCH (13:37)
[2020-07-31] MEDS: POTASSIUM CHLORIDE 20 MEQ, MAGNESIUM SULFATE 1 GM, FOLIC ACID 1 MG, THIAMINE 200 MG in ... IV SCH (18:22)
[2020-07-31] MEDS: BENZTROPINE 1 MG/ML, 2 ML IV SCH (20:53)
[2020-07-31 21:00] VITALS: BP 109/73
[2020-07-31] MEDS: SERTRALINE 50MG TABLET PO SCH (21:00)
[2020-07-31] MEDS: PALIPERIDONE 3 MG TAB.ER.24 PO SCH ×2 (21:00→21:03)
[2020-08-01 01:30] VITALS: BP 107/74
[2020-08-01] MEDS: D5%-0.45% NACL 1,000 ML IV SCH (03:36)
[2020-08-01] MEDS: INSULIN LISPRO 100 UNITS/ML, PEN SQ-INSULIN SCH ×4 (07:00→21:25)
[2020-08-01 07:23] VITALS: BP 118/78
[2020-08-01] MEDS: PANTOPRAZOLE 40 MG IV IVPush SCH (07:28)
[2020-08-01 08:23] LABS: ALBUMIN 2.7 g/dL (3.4-5.0); ANION GAP 5 mmol/L (5-15); CALCIUM 8.8 mg/dL (8.5-10.1); CHLORIDE 108 mmol/L (98-107)
[2020-08-01 08:26] LABS: ALANINE AMINOTRANSFERASE 43 U/L (12-78); ALKALINE PHOSPHATASE 70 U/L (45-117); CREATININE 0.48 mg/dL (0.55-1.02)
[2020-08-01] MEDS: CHLORDIAZEPOXIDE 10 MG CAPSULE PO SCH ×3 (09:00→21:25)
[2020-08-01] MEDS: K-PHOS NEUTRAL 250MG TAB PO SCH (09:00)
[2020-08-01] MEDS ORDERED: MAGNESIUM SULFATE PMX 4GM/100M 100 ML IVPB ONE (09:00)
[2020-08-01] MEDS: MULTIVITAMINS/MINERALS TABLET PO SCH (09:00)
[2020-08-01] MEDS ORDERED: LORazepam 2 MG/ML, 1ML IVPush ONE (09:30)
[2020-08-01 12:02] VITALS: BP 118/74
[2020-08-01] MEDS ORDERED: ENOXAPARIN 40 MG/0.4 ML SQ SCH (15:30)
[2020-08-01] MEDS ORDERED: POTASSIUM CHLORIDE 20 MEQ, MAGNESIUM SULFATE 1 GM, FOLIC ACID 1 MG, THIAMINE 200 MG, MV... IV SCH (18:00)
[2020-08-01] MEDS: SERTRALINE 50MG TABLET PO SCH (21:25)
[2020-08-01] MEDS: BENZTROPINE 1 MG/ML, 2 ML IV SCH (21:25)
[2020-08-02 04:00] VITALS: BP 120/81
[2020-08-02 07:41] VITALS: BP 109/78
[2020-08-02] MEDS: INSULIN LISPRO 100 UNITS/ML, PEN SQ-INSULIN SCH ×2 (08:37→10:53)
[2020-08-02] MEDS: PANTOPRAZOLE 40 MG IV IVPush SCH (08:37)
[2020-08-02] MEDS: CHLORDIAZEPOXIDE 10 MG CAPSULE PO SCH (08:37)
[2020-08-02] MEDS: MULTIVITAMINS/MINERALS TABLET PO SCH (08:37)
[2020-08-02 09:11] LABS: INTERNATIONAL NORMALIZED RATIO 1.04 (0.93-1.1); PROTHROMBIN TIME 11.1 Seconds (9.6-11.5)
[2020-08-02] MEDS ORDERED: MAGNESIUM SULFATE PMX 2GM/50ML 50 ML IV ONE (09:30)
[2020-08-02] MEDS ORDERED: POLYETHYLENE GLYCOL 17 GM PACKET PO ONE (09:30)
[2020-08-02] MEDS ORDERED: LACTULOSE 20 GM/30 ML UDC PO SCH (09:30)
== END 2020-08-02 13:24 | disposition left against medical advice (07) ==
LOC: ED 10:32 → 4WST 12:20 → SUATTDRO 12:57 → 4WST 07-29 07:57
PROVIDERS: ADMIT Internal Medicine; ATTEND Hospitalist
PROC: 0T9B70Z Drainage of Bladder with Drainage Device, Via Natural or Artificial Opening (ICD-10-PCS; principal; 2020-07-28)
DX: K76.0 Fatty (change of) liver, not elsewhere classified (principal); E11.65 Type 2 diabetes mellitus with hyperglycemia; E46 Unspecified protein-calorie malnutrition; E83.39 Other disorders of phosphorus metabolism; E83.42 Hypomagnesemia; E86.0 Dehydration; E87.2 Acidosis; F20.9 Schizophrenia, unspecified; F31.9 Bipolar disorder, unspecified; J32.0 Chronic maxillary sinusitis; G31.2 Degeneration of nervous system due to alcohol; R13.10 Dysphagia, unspecified; F10.231 Alcohol dependence with withdrawal delirium; R30.0 Dysuria; R53.81 Other malaise; Z68.20 Body mass index [BMI] 20.0-20.9, adult
CPT/HCPCS: 36415; 70544; 70551; 71045; 76700; 80048; 80053; 80307; 80320; 81003; 82140; 82607; 82962; 83036; 83690; 83735; 84100; 84443; 85025; 85610; 93005; 96374; G0378; J0515; J1650; J2405; J3411; J3475; J3480; C9113; G0480; J1815; J2060; J7030; J7040; J7121